=== PATIENT | male | born 1945 | race Caucasian/White ===

== ENCOUNTER 2018-06-28 13:14 | Emergency (ER) | payer BC ==
[~2018-06-28] VITALS: Ht 162.6 cm; Wt 63.5 kg
[2018-06-28 13:14] VITALS: BP 118/62
[2018-06-28] MEDS ORDERED: IBUPROFEN 600 MG TABLET PO ONE ×2 (15:00→15:01)
[2018-06-28] MEDS ORDERED: LORATADINE 10 MG TABLET ONE (15:02)
[2018-06-29] MEDS ORDERED: LORATADINE 10 MG TABLET PO SCH (09:00)
== END 2018-06-28 16:06 | disposition home or self-care (01) ==
LOC: ER 13:18
DX: J06.9 Acute upper respiratory infection, unspecified (principal); I10 Essential (primary) hypertension; E11.9 Type 2 diabetes mellitus without complications; E78.5 Hyperlipidemia, unspecified
CPT/HCPCS: 71045; 99283; A4606; Z7610